=== PATIENT | female | born 1940 | race African-American/Black ===

== ENCOUNTER 2022-03-19 20:58 | Emergency (ER) | payer OTHER, MEDICAID ==
[~2022-03-19] VITALS: Ht 170.2 cm; Wt 91.0 kg
[2022-03-19] MEDS ORDERED: SODIUM CHLORIDE 0.9% 500 ML IV ONE (22:30)
[2022-03-19 22:58] LABS: BASOPHILS % 0.4 % (0.0-2.0); EOSINOPHILS % 1.2 % (0.0-5.0); HEMATOCRIT. 41.5 % (36.0-48.0); HEMOGLOBIN. 13.7 g/dL (12.0-16.0); LYMPHOCYTES % 14.5 % (20.0-50.0); MEAN CORPUSCULAR VOLUME 87.7 fL (81.0-99.0); MEAN PLATELET VOLUME 7.4 fl (7.4-10.4); MONOCYTES % 6.9 % (2.0-8.0); PLATELET 242 x1000/uL (130-400); RED BLOOD CELL COUNT 4.74 mill/uL (4.2-5.4)
[2022-03-19 23:04] LABS: CHLORIDE 106 mEq/L (98-107)
[2022-03-20] MEDS ORDERED: LEVOFLOXACIN 750MG PREMIX 150 ML IV NR (02:00)
[2022-03-20 07:03] VITALS: BP 149/86
== END 2022-03-20 07:10 | disposition home or self-care (01) ==
LOC: ER 20:58
DX: R55 Syncope and collapse (principal); I10 Essential (primary) hypertension; Z20.822 Contact with and (suspected) exposure to COVID-19; Z88.0 Allergy status to penicillin; Z88.6 Allergy status to analgesic agent; Z90.49 Acquired absence of other specified parts of digestive tract; Z86.73 Personal history of transient ischemic attack (TIA), and cerebral infarction without residual deficits
CPT/HCPCS: 36415; 71045; 80053; 83880; 84484; 85025; 87426; 87804; 93005; 96361; 96365; 99285; C9803; J1956; J7040

== ENCOUNTER 2022-05-17 16:32 | Emergency (ER) | payer OTHER, MEDICAID ==
[~2022-05-17] VITALS: Ht 170.2 cm; Wt 91.0 kg
[2022-05-17 16:33] VITALS: BP 142/90
[2022-05-17] MEDS ORDERED: MAGNESIUM/ALUMINUM HYDROXIDE/SIMETHICONE 30ML UDC PO ONE (18:45)
[2022-05-17] MEDS ORDERED: FAMOTIDINE 20MG TABLET PO ONE (18:45)
[2022-05-17] MEDS ORDERED: ONDANSETRON 4MG ODT PO ONE (18:45)
== END 2022-05-17 20:10 | disposition home or self-care (01) ==
LOC: ER 17:21
DX: R11.2 Nausea with vomiting, unspecified (principal); E78.00 Pure hypercholesterolemia, unspecified; I10 Essential (primary) hypertension; Z90.49 Acquired absence of other specified parts of digestive tract; Z88.0 Allergy status to penicillin; Z88.6 Allergy status to analgesic agent; Z86.73 Personal history of transient ischemic attack (TIA), and cerebral infarction without residual deficits
CPT/HCPCS: 99284; Q0162